=== PATIENT | female | born 1955 | race Caucasian/White ===

== ENCOUNTER 2023-09-06 11:37 | Outpatient (AMB) | payer MEDICARE, OTHER, SELFPAY ==
--- NOTE | 2023-09-06 11:41 | AM.OFFWIN_ITS ---
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 Patient Tobacco Use Status: Never used Tobacco Allergies mushroom Adverse Reaction (Mild, Verified 09/06/23 11:44) Vomiting Do you need a note to return to daycare/school/sports/work: No HPI HPI Comments History of Present Illness Details 68 y/o female patient who presents to [facility] in clinic with c/o left knee pain. Pt fell on her Driveway and injured left knee. She has a small abrasion left Patella. The incident happened today morning. Denies hitting head on the ground. Denies LOC. PFSH Social History Patient Tobacco Use Status: Never used Tobacco Review of Systems Const All systems reviewed & are unremarkable except as noted in HPI and below Physical Exam Vital Signs: Last Vital Signs Pulse 106 H 09/06/23 11:42 BP 150/100 H 09/06/23 11:42 Pulse Ox 98 09/06/23 11:42 Oxygen Delivery Method Room Air 09/06/23 11:42 Const General: comfortable and no acute distress Nutritional Appearance: overweight Orientation/consciousness: patient oriented x3 Skin General skin exam: erythema Trauma: abrasion (left patella) Neuro General: patient oriented x3 and gait normal Extrem Left lower extremity: full ROM, normal capillary refill and knee Details: tenderness Location: of the patella, normal ROM and abrasion (left patella) Psych Speech and movement: Normal speech and movement present Assessment & Plan Assessment & Plan (1) Abrasion, left knee, initial encounter: Code(s): S80.212A - Abrasion, left knee, initial encounter Plan: - Cleaned wound with Saline - Dressed wound with Xeroform, 4x4 sponges, wrapped with Kerlix roll and Elijah - Acetaminophen for pain relief - XR to r/o Fx Coding Level of Care Code New Pt Level 3 (30101) Diagnoses Abrasion, left knee, initial encounter S80.212A Time Spent (min) 15
[2023-09-06 11:42] VITALS: BP 150/100; PULSE 106; O2SAT 98
== END 2023-09-06 12:49 | disposition home or self-care (01) ==
PROVIDERS: Visit Provider Nurse Practitioner Family
DX: S80.212A Abrasion, left knee, initial encounter (principal)
CPT/HCPCS: 99203

== ENCOUNTER 2023-09-06 12:08 | Outpatient (REF) | payer MEDICARE, OTHER, SELFPAY ==
--- NOTE | ~2023-09-06 | XR_ITS ---
EXAMINATION: XR KNEE, LEFT CLINICAL INFORMATION: Left knee pain. Fall at home. COMPARISON: None available. TECHNIQUE: Four views of the left knee. FINDINGS: Alignment is anatomic. Joint spaces are maintained. No displaced fracture. No significant joint effusion. Arterial vascular calcifications are present. XR/XR knee LT 4V IMPRESSION: No acute abnormality.
== END 2023-09-06 12:09 | disposition home or self-care (01) ==
LOC: HO.HMGCX 12:08
PROVIDERS: Visit Provider Nurse Practitioner Family
DX: S80.212A Abrasion, left knee, initial encounter (principal)
CPT/HCPCS: 73564